=== PATIENT | male | born 1970 | race Caucasian/White ===

== ENCOUNTER 2016-08-20 15:05 | Inpatient (IN) | payer SELFPAY ==
[~2016-08-20] VITALS: Ht 193 cm; Wt 119.6 kg
[~2016-08-20 15:05] MED LIST: ATENOLOL; BENAZEPRIL HCL10 MG
[2016-08-20 15:37] LABS: HEMATOCRIT 47.4 % (38.0-50.0); MCH 35.3 PG (29.0-34.0); MCHC 36.1 G/DL (30.0-36.0); MCV 97.7 FL (86-99); MEAN PLAT.VOLUME 10.8 uM^3 (9.0-12.4); PLATELET COUNT 73 K/uL (156-360); RBC DIS.WIDTH-CV 12.2 % (11.8-14.6); RED BLOOD COUNT 4.85 M/uL (4.00-5.50); WHITE BLOOD COUNT 5.2 K/uL (4.1-10.2)
[2016-08-20 15:46] LABS: CHLORIDE 105 mEq/L (99-109); POTASSIUM 4.1 mEq/L (3.7-5.4); SODIUM 140 mEq/L (136-147)
[2016-08-20 15:48] LABS: GLUCOSE 328 mg/dL (70-99)
[2016-08-20 15:49] LABS: ANION GAP 12 MEQ/L (2-14)
[2016-08-20 15:52] LABS: GFR ESTIMATE (CALCULATED) > 59 mL/min/
[2016-08-20 15:53] LABS: UREA NITROGEN (BUN) 5 mg/dL (9-23)
[2016-08-20 15:58] LABS: TROP-I INTERPRETATION NEGATIVE; TROPONIN-I < 0.01 ng/mL (0.0-0.30)
[2016-08-20 20:30] LABS: MAGNESIUM 1.9 mg/dL (1.3-2.7)
[2016-08-20 20:46] VITALS: BP 178/95
[2016-08-20 21:58] LABS: TROP-I INTERPRETATION NEGATIVE; TROPONIN-I < 0.01 ng/mL (0.0-0.30)
[2016-08-21 04:32] LABS: TROP-I INTERPRETATION NEGATIVE; TROPONIN-I < 0.01 ng/mL (0.0-0.30)
[2016-08-21 05:54] VITALS: BP 138/86
[2016-08-21 09:00] VITALS: BP 164/96
[2016-08-21 11:33] VITALS: BP 165/99
[2016-08-21 15:16] VITALS: BP 157/97
[2016-08-21 16:54] LABS: POINT-OF-CARE USER ID ENVKC36
[2016-08-21 19:22] VITALS: BP 141/77
[2016-08-21 20:51] LABS: POINT-OF-CARE METER ID UU14174216
[2016-08-21 22:36] VITALS: BP 165/90
[2016-08-22 03:39] VITALS: BP 160/70
[2016-08-22 07:43] LABS: POINT-OF-CARE METER ID UU13113698; POINT-OF-CARE USER ID ENVKC36
[2016-08-22 08:07] VITALS: BP 148/96
[2016-08-22 08:19] LABS: HEMATOCRIT 46.9 % (38.0-50.0); MCHC 35.6 G/DL (30.0-36.0); MCV 101.1 FL (86-99); MEAN PLAT.VOLUME 11.8 uM^3 (9.0-12.4); PLATELET COUNT 71 K/uL (156-360); RBC DIS.WIDTH-CV 12.7 % (11.8-14.6); RBC DIS.WIDTH-SD 46.3 % (39-53); RED BLOOD COUNT 4.64 M/uL (4.00-5.50)
[2016-08-22 08:31] LABS: ANION GAP 9 MEQ/L (2-14); CHLORIDE 106 MEQ/L (99-109); GFR ESTIMATE (CALCULATED) > 59 mL/min/; POTASSIUM 3.9 MEQ/L (3.7-5.4); SAMPLE HEMOLYSIS CHECK 0; SAMPLE ICTERIC CHECK 0; SAMPLE LIPEMIA CHECK 0; SODIUM 139 MEQ/L (136-147); UREA NITROGEN (BUN) 8 mg/dL (9-23)
[2016-08-22 08:37] LABS: GLUCOSE 130 mg/dL (70-99)
[2016-08-22 11:44] LABS: POINT-OF-CARE USER ID ENVKC36
[2016-08-22 12:22] VITALS: BP 135/95
[2016-08-22 16:27] LABS: POINT-OF-CARE USER ID ENVKC36
[2016-08-22 17:02] VITALS: BP 138/96
[2016-08-22 20:20] VITALS: BP 143/93
[2016-08-22 23:14] VITALS: BP 137/55
[2016-08-23 04:12] VITALS: BP 138/84
[2016-08-23 06:33] LABS: HEMATOCRIT 48.3 % (38.0-50.0); MCHC 34.6 G/DL (30.0-36.0); MCV 101.3 FL (86-99); MEAN PLAT.VOLUME 11.4 uM^3 (9.0-12.4); PLATELET COUNT 75 K/uL (156-360); RBC DIS.WIDTH-CV 12.7 % (11.8-14.6); RBC DIS.WIDTH-SD 46.9 % (39-53); RED BLOOD COUNT 4.77 M/uL (4.00-5.50); WHITE BLOOD COUNT 7.4 K/uL (4.1-10.2)
[2016-08-23 06:52] LABS: Estimated Average Glucose 203 mg/dL (70-123); HEMOGLOBIN A1c (GLYCOHEMOGLOB) 8.7 % HGB (Below 5.7)
[2016-08-23 06:56] LABS: ANION GAP 8 MEQ/L (2-14); CHLORIDE 105 MEQ/L (99-109); GFR ESTIMATE (CALCULATED) > 59 mL/min/; GLUCOSE 138 mg/dL (70-99); POTASSIUM 3.9 MEQ/L (3.7-5.4); SAMPLE HEMOLYSIS CHECK 0; SAMPLE ICTERIC CHECK 0; SAMPLE LIPEMIA CHECK 0; SODIUM 138 MEQ/L (136-147); UREA NITROGEN (BUN) 11 mg/dL (9-23)
[2016-08-23 07:31] LABS: POINT-OF-CARE METER ID UU14174216; POINT-OF-CARE USER ID NUTSLF44
[2016-08-23 08:00] VITALS: BP 149/92
[2016-08-23 09:34] LABS: INTER. NORMALIZED RATIO 1.6
[2016-08-23 14:31] VITALS: BP 127/60
[2016-08-23] MEDS ORDERED: LISINOPRIL20 MG PO (15:19)
[2016-08-23] MEDS ORDERED: ATORVASTATIN CA80 MG PO (15:19)
[2016-08-23] MEDS ORDERED: ASPIR-LOW81 MG PO (15:20)
[2016-08-23] MEDS ORDERED: METFORMIN HCL500 MG PO (15:21)
[2016-08-23] MEDS ORDERED: CHLORDIAZEPOXID25 MG PO (15:21)
[2016-08-23] MEDS ORDERED: METOPROLOL TA37.5 MG PO (15:21)
== END 2016-08-23 16:35 | disposition home or self-care (01) | DRG 287 ==
LOC: EME 15:05 → EDOF 19:28 → 5WEST 20:21 → 4EAST 08-21 11:51
PROVIDERS: Internal Medicine; Internal Medicine Cardiovascular Disease; Nurse Practitioner Adult Health; Physician Assistant
DX: I25.10 Atherosclerotic heart disease of native coronary artery without angina pectoris (principal); R07.9 Chest pain, unspecified; I10 Essential (primary) hypertension; E78.5 Hyperlipidemia, unspecified; E11.9 Type 2 diabetes mellitus without complications; M10.9 Gout, unspecified; F17.200 Nicotine dependence, unspecified, uncomplicated; F10.10 Alcohol abuse, uncomplicated
CPT/HCPCS: 71020; 80048; 82948; 83036; 83735; 84484; 85027; 85610; 85730; 93005; 99281; 99285; C1769; C1887; G0378; J1200; J1644; J1815; J2250; J3010; J7030; J7040; J7050

== ENCOUNTER 2017-01-22 23:25 | Observation (INO) | payer OTHER ==
[~2017-01-22] VITALS: Ht 182.9 cm; Wt 123.5 kg
[~2017-01-22 23:25] MED LIST changes: +ASPIR-LOW81 MG PO; +ATORVASTATIN CA80 MG PO; +CHLORDIAZEPOXID25 MG PO; +LISINOPRIL20 MG PO; +METFORMIN HCL500 MG PO; +METOPROLOL TA37.5 MG PO
[2017-01-22 23:50] LABS: POINT-OF-CARE METER ID UU13113778
[2017-01-23 00:47] LABS: HEMATOCRIT 45.8 % (38.0-50.0); MCH 34.2 PG (29.0-34.0); MCHC 34.7 G/DL (30.0-36.0); MCV 98.5 FL (86-99); MEAN PLAT.VOLUME 10.5 uM^3 (9.0-12.4); PLATELET COUNT 113 K/uL (156-360); RBC DIS.WIDTH-CV 12.1 % (11.8-14.6); RBC DIS.WIDTH-SD 43.8 % (39-53); RED BLOOD COUNT 4.65 M/uL (4.00-5.50); WHITE BLOOD COUNT 10.1 K/uL (4.1-10.2)
[2017-01-23 00:58] LABS: INTER. NORMALIZED RATIO 1.3; PROTHROMBIN TIME 13.1 (9.2-11.2); PTT 28.8 (25-32)
[2017-01-23 01:03] LABS: CHLORIDE 100 mEq/L (99-109); POTASSIUM 4.9 mEq/L (3.7-5.4); SODIUM 138 mEq/L (136-147)
[2017-01-23 01:05] LABS: GLUCOSE 166 mg/dL (70-99)
[2017-01-23 01:06] LABS: ANION GAP 13 MEQ/L (2-14)
[2017-01-23 01:09] LABS: GFR ESTIMATE (CALCULATED) > 59 mL/min/
[2017-01-23 01:10] LABS: UREA NITROGEN (BUN) 10 mg/dL (9-23)
[2017-01-23 01:18] LABS: TROP-I INTERPRETATION NEGATIVE; TROPONIN-I < 0.01 ng/mL (0.0-0.30)
[2017-01-23 07:34] VITALS: BP 133/76
[2017-01-23 07:50] LABS: HDL CHOLESTEROL 48 MG/DL (Desirable>=40); LDL CHOLESTEROL 70 mg/dL (Desirable<100); NON-HDL CHOLESTEROL 115 mg/dL (Desirable<160); TOTAL CHOLESTEROL 163 mg/dL (Desirable<200); TRIGLYCERIDES 227 MG/DL (Normal: <150)
[2017-01-23 10:59] VITALS: BP 146/75
[2017-01-23] MEDS ORDERED: LIPITOR80 MG PO (15:20)
[2017-01-23] MEDS ORDERED: PRINIVIL20 MG PO (15:24)
[2017-01-23] MEDS ORDERED: LO-DOSE ASPIRIN81 M2 PO (15:24)
[2017-01-23] MEDS ORDERED: LOPRESSOR50 MG PO (15:27)
[2017-01-23 15:30] VITALS: BP 161/87
[2017-01-23 19:00] VITALS: BP 161/83
[2017-01-23 21:48] LABS: POINT-OF-CARE METER ID UU13113831
[2017-01-23 23:08] VITALS: BP 127/77
[2017-01-24 04:00] VITALS: BP 130/72
[2017-01-24 07:00] LABS: Estimated Average Glucose 140 mg/dL (70-123)
[2017-01-24 07:03] LABS: HEMOGLOBIN A1c (GLYCOHEMOGLOB) 6.5 % HGB (Below 5.7)
[2017-01-24 08:32] LABS: POINT-OF-CARE METER ID UU14162513
[2017-01-24 08:45] VITALS: BP 142/90
[2017-01-24 10:32] LABS: EOSINOPHIL COUNT 0.2 K/uL (0-0.3); HEMATOCRIT 44.2 % (38.0-50.0); IMMATURE GRANULOCYTE (%) 0.2 % (0.0-0.7); INSTRUMENT ABS NEUTROPHIL CT 3.5 K/uL; LYMPHOCYTE COUNT 0.9 K/uL (1.0-2.8); MCH 33.7 PG (29.0-34.0); MCHC 33.5 G/DL (30.0-36.0); MCV 100.7 FL (86-99); MONOCYTE (%) 10.3 % (3-12); MONOCYTE COUNT 0.5 K/uL (0-0.8); NEUTROPHIL (%) 68.1 % (45-76); NEUTROPHIL COUNT 3.5 K/uL (1.8-6.4); PLATELET COUNT 86 K/uL (156-360); RED BLOOD COUNT 4.39 M/uL (4.00-5.50); WHITE BLOOD COUNT 5.1 K/uL (4.1-10.2)
[2017-01-24 10:57] LABS: ANION GAP 7 MEQ/L (2-14); CHLORIDE 102 MEQ/L (99-109); GFR ESTIMATE (CALCULATED) > 59 mL/min/; GLUCOSE 220 mg/dL (70-99); POTASSIUM 4.4 MEQ/L (3.7-5.4); SAMPLE HEMOLYSIS CHECK 0; SAMPLE ICTERIC CHECK 0; SAMPLE LIPEMIA CHECK 0; SODIUM 139 MEQ/L (136-147); UREA NITROGEN (BUN) 11 mg/dL (9-23)
[2017-01-24 11:31] VITALS: BP 135/79
[2017-01-24 12:39] LABS: POINT-OF-CARE METER ID UU13113831
[2017-01-24] MEDS ORDERED: LIBRIUM10 MG PO (13:51)
== END 2017-01-24 15:01 | disposition home or self-care (01) ==
LOC: EME 23:25 → EDOF 01-23 04:19 → 5WEST 01-23 04:19 → EDOF 01-23 04:19 → 5WEST 01-23 07:29
PROVIDERS: Emergency Medicine; Hospitalist
DX: R20.0 Anesthesia of skin (principal); M54.2 Cervicalgia; M79.602 Pain in left arm; F10.10 Alcohol abuse, uncomplicated; E66.01 Morbid (severe) obesity due to excess calories; I10 Essential (primary) hypertension; E78.2 Mixed hyperlipidemia; Z68.36 Body mass index [BMI] 36.0-36.9, adult; E11.9 Type 2 diabetes mellitus without complications; E78.00 Pure hypercholesterolemia, unspecified; F17.210 Nicotine dependence, cigarettes, uncomplicated
CPT/HCPCS: 70450; 70551; 71020; 80048; 80061; 82607; 82746; 82948; 83036; 83735; 84443; 84484; 85025; 85027; 85610; 85730; 93005; 93880; 99281; 99284; G0378; J3411; J3475

== ENCOUNTER 2017-04-27 00:09 | Emergency (ER) | payer OTHER ==
[~2017-04-27] VITALS: Ht 182.9 cm; Wt 122.8 kg
[~2017-04-27 00:09] MED LIST changes: +LIBRIUM10 MG PO; +LIPITOR80 MG PO; +LO-DOSE ASPIRIN81 M2 PO; +LOPRESSOR50 MG PO; +PRINIVIL20 MG PO
[2017-04-27 02:50] LABS: EOSINOPHIL (%) 1.1 % (0-5); EOSINOPHIL COUNT 0.1 K/uL (0-0.3); HEMATOCRIT 45.5 % (38.0-50.0); IMMATURE GRANULOCYTE (%) 0.7 % (0.0-0.7); IMMATURE GRANULOCYTE COUNT 0.1 K/uL; INSTRUMENT ABS NEUTROPHIL CT 4.6 K/uL; LYMPHOCYTE COUNT 1.7 K/uL (1.0-2.8); MCH 33.5 PG (29.0-34.0); MCHC 35.4 G/DL (30.0-36.0); MCV 94.8 FL (86-99); MEAN PLAT.VOLUME 9.9 uM^3 (9.0-12.4); MONOCYTE (%) 9.2 % (3-12); MONOCYTE COUNT 0.7 K/uL (0-0.8); NEUTROPHIL (%) 64.3 % (45-76); NEUTROPHIL COUNT 4.6 K/uL (1.8-6.4); PLATELET COUNT 110 K/uL (156-360); RBC DIS.WIDTH-CV 12.1 % (11.8-14.6); RBC DIS.WIDTH-SD 42.4 % (39-53); WHITE BLOOD COUNT 7.2 K/uL (4.1-10.2)
[2017-04-27 03:16] LABS: PHENCYCLIDINE NEGATIVE (25 ng/mL); THC CANNABINOIDS PRESUMPTIVE POSITIVE (50 ng/mL)
[2017-04-27 03:17] LABS: ADD MEDTOX COMMENT Y; AMPHETAMINE NEGATIVE (500 ng/mL); BARBITURATES NEGATIVE (200 ng/mL); BENZODIAZEPINES NEGATIVE (150 ng/mL); COCAINE NEGATIVE (150 ng/mL); INTERNAL CONTROLS VALID? YES; METHADONE NEGATIVE (200 ng/mL); METHAMPHETAMINE PRESUMPTIVE POSITIVE (500 ng/mL); OPIATES (MORPHINE) NEGATIVE (100 ng/mL); OXYCODONE NEGATIVE (100 ng/mL); PROPOXYPHENE NEGATIVE (300 ng/mL); TRICYCLIC ANTIDEPRESSANTS NEGATIVE (300 ng/mL)
[2017-04-27 03:29] LABS: MARIJUANA QUANT VALUE 183.1 NG/ML
[2017-04-27 03:39] LABS: COLOR AMBER ((YELLOW))
[2017-04-27 03:40] LABS: ADD MIUA? YES; BILIRUBIN NEGATIVE; BLOOD NEGATIVE; GLUCOSE (STRIP) NEGATIVE; KETONES NEGATIVE; LEUKOCYTES TRACE; NITRITE NEGATIVE; PROTEIN (STRIP) 30; SPECIFIC GRAVITY 1.029 (1.000-1.030)
[2017-04-27 03:48] LABS: CHLORIDE 105 MEQ/L (99-109); GFR ESTIMATE (CALCULATED) > 59 mL/min/; GLUCOSE 99 mg/dL (70-99); POTASSIUM 3.8 MEQ/L (3.7-5.4); SODIUM 141 MEQ/L (136-147); TOTAL BILIRUBIN 1.2 MG/DL (0.0-1.0); UREA NITROGEN (BUN) 8 mg/dL (9-23)
[2017-04-27 03:49] LABS: ALKALINE PHOSPHATASE 92 IU/L (3-129); ANION GAP 15 MEQ/L (2-14); LIPASE 70 U/L (1.0-51.0); SERUM ETHYL ALCOHOL 163 mg/dL
[2017-04-27 03:49] LABS: RED BLOOD CELLS NONE SEEN /HPF (0-5); WHITE BLOOD CELLS 0-5 /HPF (0-5)
[2017-04-27 03:50] LABS: BACTERIA 1+ /HPF; EPITHELIAL CELLS 1+ /HPF; MUCUS 1+ /LPF; UCUL ADDED? NO
[2017-04-27 04:34] VITALS: BP 158/98
== END 2017-04-27 04:36 | disposition home or self-care (01) ==
LOC: EME 00:09
PROVIDERS: Emergency Medicine
DX: F10.20 Alcohol dependence, uncomplicated (principal); Y90.6 Blood alcohol level of 120-199 mg/100 ml; R51 Headache; I10 Essential (primary) hypertension; E78.5 Hyperlipidemia, unspecified; Z79.82 Long term (current) use of aspirin; F17.200 Nicotine dependence, unspecified, uncomplicated
CPT/HCPCS: 80053; 81003; 83690; 84999; 85025; 99281; 99283; G0480

== ENCOUNTER 2017-06-18 15:39 | Emergency (ER) | payer OTHER ==
[~2017-06-18] VITALS: Ht 193 cm; Wt 121.3 kg
[2017-06-18 16:18] LABS: HEMATOCRIT 44.7 % (38.0-50.0); MCH 34.7 PG (29.0-34.0); MCHC 35.1 G/DL (30.0-36.0); MCV 98.7 FL (86-99); MEAN PLAT.VOLUME 11.3 uM^3 (9.0-12.4); PLATELET COUNT 107 K/uL (156-360); RBC DIS.WIDTH-CV 12.4 % (11.8-14.6); RED BLOOD COUNT 4.53 M/uL (4.00-5.50); WHITE BLOOD COUNT 6.1 K/uL (4.1-10.2)
[2017-06-18 16:27] LABS: CHLORIDE 107 mEq/L (99-109); POTASSIUM 4.2 mEq/L (3.7-5.4); SODIUM 138 mEq/L (136-147)
[2017-06-18 16:29] LABS: GLUCOSE 189 mg/dL (70-99)
[2017-06-18 16:30] LABS: ANION GAP 6 MEQ/L (2-14)
[2017-06-18 16:31] LABS: TOTAL BILIRUBIN 0.9 mg/dL (0.0-1.0)
[2017-06-18 16:32] LABS: ALKALINE PHOSPHATASE 103 IU/L (3-129)
[2017-06-18 16:33] LABS: GFR ESTIMATE (CALCULATED) > 59 mL/min/
[2017-06-18 16:34] LABS: UREA NITROGEN (BUN) 16 mg/dL (9-23)
[2017-06-18 16:36] LABS: ADD MIUA? NO; BILIRUBIN NEGATIVE; BLOOD NEGATIVE; COLOR YELLOW ((YELLOW)); GLUCOSE (STRIP) 50; KETONES NEGATIVE; LEUKOCYTES NEGATIVE; NITRITE NEGATIVE; PROTEIN (STRIP) NEGATIVE; SPECIFIC GRAVITY 1.027 (1.000-1.030); UROBILINOGEN 0.2 MG/DL (0.2-1.0)
[2017-06-18 16:36] LABS: LIPASE 67 U/L (1.0-51.0)
[2017-06-18 17:08] LABS: AMPHETAMINE NEGATIVE (500 ng/mL); COCAINE NEGATIVE (150 ng/mL); METHAMPHETAMINE NEGATIVE (500 ng/mL); OPIATES (MORPHINE) NEGATIVE (100 ng/mL); PHENCYCLIDINE NEGATIVE (25 ng/mL); THC CANNABINOIDS NEGATIVE (50 ng/mL)
[2017-06-18 17:09] LABS: ADD MEDTOX COMMENT Y; BARBITURATES NEGATIVE (200 ng/mL); BENZODIAZEPINES PRESUMPTIVE POSITIVE (150 ng/mL); INTERNAL CONTROLS VALID? YES; METHADONE NEGATIVE (200 ng/mL); OXYCODONE NEGATIVE (100 ng/mL); PROPOXYPHENE NEGATIVE (300 ng/mL); TRICYCLIC ANTIDEPRESSANTS PRESUMPTIVE POSITIVE (300 ng/mL)
[2017-06-18 17:18] LABS: SERUM ETHYL ALCOHOL < 10 mg/dL
[2017-06-18] MEDS ORDERED: LISINOPRIL30 MG PO (17:19)
[2017-06-18] MEDS ORDERED: GLUCOPHAGE500 MG PO (17:19)
[2017-06-18] MEDS ORDERED: IBUPROFEN800 MG PO (17:20)
[2017-06-18] MEDS ORDERED: FLEXERIL5 MG PO (17:20)
[2017-06-18] MEDS ORDERED: METOPROLOL SUCC50 MG PO (17:21)
[2017-06-18] MEDS ORDERED: ATORVASTATIN CA40 MG PO (17:21)
[2017-06-18] MEDS ORDERED: LIBRIUM25 MG PO (17:22)
[2017-06-18] MEDS ORDERED: ZOLOFT25 MG PO (17:22)
[2017-06-18 17:28] LABS: TROP-I INTERPRETATION NEGATIVE; TROPONIN-I < 0.01 ng/mL (0.0-0.30)
[2017-06-18 17:44] LABS: BENZODIAZEPINES, URINE SCREEN POSITIVE (200 ng/mL)
[2017-06-18 20:51] LABS: TROP-I INTERPRETATION NEGATIVE; TROPONIN-I < 0.01 ng/mL (0.0-0.30)
[2017-06-18] MEDS ORDERED: ANTIVERT25 MG PO (21:07)
[2017-06-18 21:26] VITALS: BP 122/79
== END 2017-06-18 21:40 | disposition home or self-care (01) ==
LOC: EME 15:39
PROVIDERS: Physician Assistant
DX: R42 Dizziness and giddiness (principal); I10 Essential (primary) hypertension; E78.5 Hyperlipidemia, unspecified; E11.9 Type 2 diabetes mellitus without complications; K21.9 Gastro-esophageal reflux disease without esophagitis; F17.200 Nicotine dependence, unspecified, uncomplicated; Z88.5 Allergy status to narcotic agent
CPT/HCPCS: 70450; 80053; 81003; 83690; 84484; 84999; 85027; 93005; 99281; 99285; G0480

== ENCOUNTER 2017-10-27 21:36 | Emergency (ER) | payer OTHER ==
[~2017-10-27] VITALS: Ht 193 cm; Wt 119.0 kg
[~2017-10-27 21:36] MED LIST changes: +ANTIVERT25 MG PO; +ATORVASTATIN CA40 MG PO; +FLEXERIL5 MG PO; +GLUCOPHAGE500 MG PO; +IBUPROFEN800 MG PO; +LIBRIUM25 MG PO; +LISINOPRIL30 MG PO; +METOPROLOL SUCC50 MG PO; +ZOLOFT25 MG PO
[2017-10-28] MEDS ORDERED: VIBRAMYCIN100 MG PO (00:16)
[2017-10-28] MEDS ORDERED: MOTRIN800 MG PO (00:16)
[2017-10-28] MEDS ORDERED: NORCO 7.5/321 TABLET PO (00:16)
[2017-10-28 00:49] VITALS: BP 160/97
== END 2017-10-28 00:52 | disposition home or self-care (01) ==
LOC: EXP 21:36 → EME 21:36 → EXP 10-28 00:52
PROC: 0H9CXZZ Drainage of Left Upper Arm Skin, External Approach (ICD-10-PCS; principal; 2017-10-27)
DX: L02.412 Cutaneous abscess of left axilla (principal); D22.5 Melanocytic nevi of trunk; L03.112 Cellulitis of left axilla; E11.9 Type 2 diabetes mellitus without complications; I10 Essential (primary) hypertension; F17.200 Nicotine dependence, unspecified, uncomplicated; Z79.84 Long term (current) use of oral hypoglycemic drugs; Z90.49 Acquired absence of other specified parts of digestive tract; Z88.5 Allergy status to narcotic agent
CPT/HCPCS: 87070; 87075; 87076; 87205; 99281; 99284

== ENCOUNTER 2018-01-19 14:21 | Emergency (ER) | payer OTHER ==
[~2018-01-19] VITALS: Ht 193 cm; Wt 115.0 kg
[~2018-01-19 14:21] MED LIST changes: +MOTRIN800 MG PO; +NORCO 7.5/321 TABLET PO; +VIBRAMYCIN100 MG PO
[2018-01-19 14:49] LABS: HEMATOCRIT 44.8 % (38.0-50.0); HEMOGLOBIN 16.6 G/DL (12.5-16.6); MCH 35.6 PG (29.0-34.0); MCHC 37.1 G/DL (30.0-36.0); MCV 96.1 FL (86-99); PLATELET COUNT 127 K/uL (156-360); RBC DIS.WIDTH-CV 11.4 % (11.8-14.6); RBC DIS.WIDTH-SD 40.1 % (39-53); RED BLOOD COUNT 4.66 M/uL (4.00-5.50); WHITE BLOOD COUNT 6.4 K/uL (4.1-10.2)
[2018-01-19 14:52] LABS: APPEARANCE CLEAR ((CLEAR)); BILIRUBIN NEGATIVE; BLOOD NEGATIVE; COLOR YELLOW ((YELLOW)); GLUCOSE (STRIP) NEGATIVE; KETONES 5; LEUKOCYTES NEGATIVE; NITRITE NEGATIVE; PROTEIN (STRIP) NEGATIVE; SPECIFIC GRAVITY 1.019 (1.000-1.030); UCUL ADDED? NO
[2018-01-19 14:57] LABS: ALBUMIN 4.3 g/dL (3.2-4.8); CHLORIDE 106 mEq/L (99-109); POTASSIUM 4.4 mEq/L (3.7-5.4); SODIUM 138 mEq/L (136-147)
[2018-01-19 15:00] LABS: GLUCOSE 131 mg/dL (70-99); TOTAL PROTEIN 7.7 g/dL (6.4-8.3)
[2018-01-19 15:01] LABS: TOTAL BILIRUBIN 1.4 mg/dL (0.0-1.0)
[2018-01-19 15:03] LABS: ALKALINE PHOSPHATASE 109 IU/L (3-129); CREATININE 1.1 mg/dL (0.6-1.3); GFR ESTIMATE (CALCULATED) > 59 mL/min/ (58.99-99999)
[2018-01-19 15:04] LABS: UREA NITROGEN (BUN) 15 mg/dL (9-23)
[2018-01-19 15:05] LABS: AST (GOT) 111 IU/L (2-34)
[2018-01-19 15:06] LABS: ALT (GPT) 85 IU/L (3-49)
[2018-01-19 15:07] LABS: LIPASE 50 U/L (1.0-51.0)
[2018-01-19] MEDS ORDERED: ZOFRAN ODT8 MG PO (17:10)
[2018-01-19 17:35] VITALS: BP 157/97
== END 2018-01-19 17:38 | disposition home or self-care (01) ==
LOC: EME 14:21
DX: R11.2 Nausea with vomiting, unspecified (principal); E11.9 Type 2 diabetes mellitus without complications; I10 Essential (primary) hypertension; K21.9 Gastro-esophageal reflux disease without esophagitis; E78.5 Hyperlipidemia, unspecified; M47.9 Spondylosis, unspecified; F17.200 Nicotine dependence, unspecified, uncomplicated; Z79.84 Long term (current) use of oral hypoglycemic drugs; Z88.5 Allergy status to narcotic agent
CPT/HCPCS: 80053; 81003; 82948; 83690; 85027; 99281; 99284; J2405; J7030

== ENCOUNTER 2018-02-02 23:14 | Emergency (ER) | payer OTHER ==
[~2018-02-02] VITALS: Ht 182.9 cm; Wt 116.8 kg
[~2018-02-02 23:14] MED LIST changes: +ZOFRAN ODT8 MG PO
[2018-02-03] MEDS ORDERED: PERCOCET 5/31 TABLET PO (00:43)
[2018-02-03] MEDS ORDERED: ROBAXIN750 MG PO (00:43)
[2018-02-03] MEDS ORDERED: LIDODERM 5% P1 PATCH TD (00:44)
[2018-02-03 00:57] VITALS: BP 139/97
== END 2018-02-03 00:58 | disposition home or self-care (01) ==
LOC: EME 23:14
DX: S22.32XA Fracture of one rib, left side, initial encounter for closed fracture (principal); W01.190A Fall on same level from slipping, tripping and stumbling with subsequent striking against furniture, initial encounter; S20.212A Contusion of left front wall of thorax, initial encounter; I10 Essential (primary) hypertension; E11.9 Type 2 diabetes mellitus without complications; Z79.84 Long term (current) use of oral hypoglycemic drugs
CPT/HCPCS: 71101; 99281; 99284